=== PATIENT | male | born 1960 | race Caucasian/White ===

== ENCOUNTER 2023-12-28 12:53 | Emergency (ER) | payer MEDICARE ==
[~2023-12-28] VITALS: Ht 177.8 cm; Wt 74.8 kg
[2023-12-28 13:01] VITALS: O2SAT 98
[2023-12-28 13:54] LABS: CALCIUM 8.7 mg/dL (8.5-10.1); CARBON DIOXIDE 28 mmol/L (21-32); CHLORIDE 103 mmol/L (98-107); CREATININE 0.9 mg/dL (0.6-1.3); GLUCOSE 104 mg/dL (74-106); POTASSIUM 3.8 mmol/L (3.5-5.1); SODIUM SERUM 139 mmol/L (136-145); UREA NITROGEN, BLOOD 16 mg/dL (7-18)
[2023-12-28 13:58] LABS: ETHANOL < 3 MG/DL (0-10)
[2023-12-28 14:03] LABS: ALANINE AMINOTRANSFERASE 21 U/L (16-63); ALBUMIN 3.4 g/dL (3.4-5.0); ALKALINE PHOSPHATASE 65 U/L (50-136); ASPARTATE AMINOTRANSFERASE 14 U/L (15-37); BILIRUBIN,DIRECT 0.3 mg/dL (0.0-0.2); BILIRUBIN,TOTAL 1.5 mg/dL (0.2-1.0); TOTAL PROTEIN, SERUM 6.9 g/dL (6.4-8.2)
[2023-12-28 14:12] LABS: AMMONIA < 10 umol/L (11-32)
[2023-12-28 14:24] LABS: ACETAMINOPHEN < 2.0 ug/mL (10-30)
[2023-12-28 14:39] LABS: *BILIRUBIN,URIN NEGATIVE (NEGATIVE); *BLOOD, URINE NEGATIVE (NEGATIVE); *CLARITY,URINE CLEAR (CLEAR); *COLOR,URINE YELLOW (YELLOW); *KETONES,URINE 3+ (NEGATIVE); *PROTEIN,URINE NEGATIVE (NEGATIVE); *UROBILINOGEN,URINE 0.2 E.U./dl (NORMAL); LEUKOCYTE ESTERASE ,URINE NEGATIVE (NEGATIVE); NITRITE, URINE NEGATIVE (NEGATIVE); UGLUCOSE NEGATIVE (NEGATIVE)
[2023-12-28 14:59] LABS: BASOPHILS % (AUTO) 0.4 % (0.0-2.0); HEMATOCRIT 44.5 % (36.7-47.1); HEMOGLOBIN 14.8 g/dL (12.5-16.3); LYMPHOCYTES # (AUTO) 0.7 K/uL (0.8-4.8); LYMPHOCYTES % (AUTO) 9.5 % (20.5-51.5); MEAN CORPUSCULAR HEMOGLOBIN 29.4 uug (23.8-33.4); MEAN CORPUSCULAR HGB CONC 33 g/dL (32.5-36.3); MEAN CORPUSCULAR VOLUME 88.5 fL (73.0-96.2); MONOCYTES # (AUTO) 0.3 K/uL (0.1-1.30); MONOCYTES % (AUTO) 4.3 % (0.0-11.0); NEUTROPHILS # (AUTO) 6.4 K/uL (1.8-8.9); NEUTROPHILS % (AUTO) 85.8 % (38.5-71.5); PLATELET COUNT (AUTO) 170 K/uL (152-348); RED BLOOD CELL COUNT(AUTO) 5.03 MIL/uL (4.06-5.63); RED CELL DISTRIBUTION WIDTH 13.1 % (12.1-16.2); WHITE BLOOD COUNT (AUTO) 7.5 K/uL (3.6-10.2)
[2023-12-28 15:03] LABS: DIFFERENTIAL COMMENT 1
[2023-12-28 15:10] LABS: RBC,URINE NONE SEEN /HPF (0-3); WBC,URINE 0-3 /HPF (0-3)
[2023-12-28 15:11] LABS: BACTERIA,URINE NONE SEEN /HPF (NONE SEEN); SQUAMOUS EPITHELIAL CELL,UR FEW /HPF (NONE SEEN)
== END 2023-12-28 16:32 | disposition home or self-care (01) ==
LOC: ER 12:53
DX: R27.0 Ataxia, unspecified (principal); R41.0 Disorientation, unspecified; Z88.0 Allergy status to penicillin
CPT/HCPCS: 80076; 80048; 81001; 82140; 85025; 85730; 87040 ×2; 84484; 36415; 93005; 99284; 83605; 87086; 80299; 80320; J7040; A4606; A4663; G0480

== ENCOUNTER 2025-03-28 19:46 | Emergency (ER) | payer MEDICARE, BC ==
[~2025-03-28] VITALS: Ht 177.8 cm; Wt 78.9 kg
[2025-03-28] MEDS ORDERED: PANTOPRAZOLE SODIUM 40 MG VIAL ONE (20:09)
[2025-03-28] MEDS ORDERED: ONDANSETRON 4 MG/2 ML VIAL ONE ×2 (20:09→20:12)
[2025-03-28] MEDS ORDERED: DICYCLOMINE HCL 20 MG TABLET ONE (20:09)
[2025-03-28 20:13] LABS: PLATELET COUNT (AUTO) 189 K/uL (152-348); RED BLOOD CELL COUNT(AUTO) 5.36 MIL/uL (4.06-5.63); RED CELL DISTRIBUTION WIDTH 13.3 % (12.1-16.2); WHITE BLOOD COUNT (AUTO) 7.6 K/uL (3.6-10.2)
[2025-03-28] MEDS: PANTOPRAZOLE SODIUM IV 40 MG in IV DEXTROSE 5% 100 ML IV ONE (20:23)
[2025-03-28] MEDS: ONDANSETRON 4 MG/2 ML VIAL IV ONE (20:23)
[2025-03-28] MEDS: DICYCLOMINE HCL 20 MG TABLET PO STA (20:23)
[2025-03-28] MEDS: IV NORMAL SALINE 500 ML BAG IV ONE (20:23)
[2025-03-28] MEDS ORDERED: ONDA4TAB5 PO (20:24)
[2025-03-28] MEDS ORDERED: MECL-225 PO (20:24)
[2025-03-28] MEDS ORDERED: OMEP40CA21 PO (20:24)
[2025-03-28] MEDS ORDERED: DICY-17 PO (20:24)
[2025-03-28 20:29] LABS: CREATININE 0.9 mg/dL (0.6-1.3); SODIUM SERUM 135.0 mmol/L (136-145); UREA NITROGEN, BLOOD 10.0 mg/dL (7-18)
[2025-03-28 20:35] LABS: ASPARTATE AMINOTRANSFERASE 20.0 U/L (15-37); TOTAL PROTEIN, SERUM 7.6 g/dL (6.4-8.2)
[2025-03-28] MEDS ORDERED: MECLIZINE HCL 25 MG TABLET ONE (20:54)
[2025-03-28] MEDS: MECLIZINE HCL 25 MG TABLET PO ONE (20:56)
[2025-03-28 21:00] VITALS: BP 131/76
[2025-03-28 21:37] VITALS: BP 131/76; TEMP 98; O2SAT 99
== END 2025-03-28 21:35 | disposition home or self-care (01) ==
LOC: ER 19:52
DX: R10.9 Unspecified abdominal pain (principal); R42 Dizziness and giddiness; R11.2 Nausea with vomiting, unspecified; Z88.0 Allergy status to penicillin; Z79.899 Other long term (current) drug therapy
CPT/HCPCS: 99284; 96365; 96375; 80053; 83735; 85025; 86140; 36415; 93005; 83605; J2405 ×2; J2470 ×2; J7040; A4606; A4663; J8597